=== PATIENT | female | born 1955 | race Caucasian/White ===

== ENCOUNTER 2019-03-10 17:15 | Emergency (ER) | payer BC ==
[~2019-03-10] VITALS: Ht 165.1 cm; Wt 68.0 kg
[2019-03-10 17:16] VITALS: BP 141/66
[2019-03-10] MEDS ORDERED: NORCO 5-325 TA1 EACH PO (19:51)
== END 2019-03-10 19:45 | disposition home or self-care (01) ==
LOC: ER 17:15
DX: M65.272 Calcific tendinitis, left ankle and foot (principal)